=== PATIENT | female | born 1985 | race African-American/Black ===

== ENCOUNTER 2020-02-26 04:41 | Inpatient (IN) | payer OTHER ==
[2020-02-25 11:20] VITALS: BMI 28.1
[2020-02-26] MEDS ORDERED: VASOPRESSIN 20 UNITS/ML VIAL IV ONE (06:42)
[2020-02-26] MEDS ORDERED: BUPIVACAINE LIPOSOME/PF (EXPAREL) 266 MG/20 ML VIAL ONE (07:14)
[2020-02-26] MEDS ORDERED: MIDAZOLAM HCL 2 MG/2 ML SINGLE DOSE VIAL ONE ×3 (07:27→07:28)
[2020-02-26] MEDS ORDERED: ROCURONIUM BROMIDE 50 MG/5 ML SYRINGE ONE ×2 (07:27→08:31)
[2020-02-26] MEDS ORDERED: PROPOFOL 20 ML ONE ×4 (07:27→09:35)
[2020-02-26] MEDS ORDERED: EPHEDRINE SULFATE/0.9% NACL/PF 50 MG/10 ML SYRINGE NR ONE (07:28)
[2020-02-26] MEDS ORDERED: SUCCINYLCHOLINE CHLORIDE 200 MG/10 ML SYRINGE ONE (07:28)
[2020-02-26] MEDS ORDERED: fentaNYL CITRATE 250 MCG/5 ML VIAL ONE (07:28)
--- NOTE | 2020-02-26 08:01 | HP ---
History & Physical Update - History History: No Change - Physical Physical: No Change - Assessment Assessment: No Change - Plan Plan: No Change (No change in HP)
[2020-02-26] MEDS ORDERED: ceFAZolin SODIUM 1 GM VIAL IVPB ONE (08:15)
[2020-02-26] MEDS ORDERED: ONDANSETRON 4 MG/2 ML VIAL IVPUSH PRN ×3 (08:32→12:12)
[2020-02-26] MEDS ORDERED: LACTATED RINGERS SOLUTION 1,000 ML IV SCH (08:45)
[2020-02-26] MEDS ORDERED: HYDROmorphone HCl 2 MG/ML VIAL ONE (08:54)
[2020-02-26] MEDS ORDERED: DEXAMETHASONE SOD PHOSPHATE 4 MG/1 ML VIAL ONE (09:00)
[2020-02-26] MEDS ORDERED: LIDOCAINE HCL 2% JELLY (5 ML/TUBE) ONE (09:00)
[2020-02-26] MEDS ORDERED: ceFAZolin SODIUM 1 GM VIAL ONE (09:00)
[2020-02-26] MEDS ORDERED: GLYCOPYRROLATE 0.2 MG/1 ML VIAL ONE (09:00)
[2020-02-26] MEDS ORDERED: NEOSTIGMINE METHYLSULFATE 0.5 MG/ML - 10 ML MDV ONE (09:00)
[2020-02-26] MEDS ORDERED: LIDOCAINE HCL/PF 2% SDV 5ML VIAL ONE (09:00)
[2020-02-26] MEDS ORDERED: LABETALOL HCL 5 MG/1 ML (100MG/20 ML VIAL) ONE (09:08)
[2020-02-26] MEDS ORDERED: hydrALAZINE HCL 20 MG/ML VIAL ONE (10:39)
[2020-02-26] MEDS ORDERED: hydrALAZINE HCL 20 MG/ML VIAL IVPUSH ONE (10:40)
--- NOTE | 2020-02-26 11:29 | OP ---
Operative Note - Note: Operative Date: 02/26/20 Pre-Operative Diagnosis: Leiomyomatous Uterus. Abdominal Pain Operation: Abdominal myomectomy. Enterolysis Post-Operative Diagnosis: Same as Pre-op Surgeon: Ashlee Arenas Counter Stacker: Nils Montoya Anesthesia: General Specimens Removed: 12 cm myoma. 2 x 3 cm. 1 x 4 cm. 1x 5 cm Estimated Blood Loss (mls): 200 Operative Report Dictated: Yes
[2020-02-26] MEDS ORDERED: DOCUSATE SODIUM 100 MG CAPSULE (FP) PO PRN (11:33)
[2020-02-26] MEDS ORDERED: BISACODYL 5 MG TABLET.DR (FP) PO PRN (11:33)
[2020-02-26] MEDS ORDERED: ACETAMINOPHEN 325 MG TABLET (FP) PO PRN (11:33)
[2020-02-26] MEDS ORDERED: ELECTROLYTE-148 SOLN 1,000 ML IV SCH (11:45)
[2020-02-26] MEDS: LACTATED RINGERS SOLUTION 1,000 ML IV SCH ×2 (13:00→21:15)
[2020-02-26] MEDS ORDERED: CEFAZOLIN 2 GM in DEXTROSE 5%-WATER - 100 ML IVPB ONE (16:00)
[2020-02-26] MEDS: IBUPROFEN 800 MG/8 ML IJ IVPB PRN (16:19)
[2020-02-26] MEDS: CEFAZOLIN 1 GM/D5W 1 GM/50 ML BAG IVPB SCH (18:42)
[2020-02-26 20:35] LABS: HEMATOCRIT 34.2 % (32.4-45.2); HEMOGLOBIN 11.5 GM/dL (10.7-15.3); MCH 32.3 pg (25.7-33.7); MCHC 33.7 g/dl (32.0-36.0); MEAN CELL VOLUME 95.8 fl (80-96); MEAN PLT VOLUME 9.4 fl (7.5-11.1); PLATELET COUNT 211 K/MM3 (134-434); RBC 3.57 M/mm3 (3.60-5.2); RDW 13.7 % (11.6-15.6); WHITE BLOOD COUNT 8.8 K/mm3 (4.0-10.0)
[2020-02-26 20:52] LABS: BLOOD UREA NITROGEN 10.1 mg/dL (7-18); CALCIUM 8.4 mg/dL (8.5-10.1); CREATININE 0.8 mg/dL (0.55-1.3)
[2020-02-26] MEDS: SIMETHICONE 80 MG TAB.CHEW (FP) PO PRN (21:12)
[2020-02-27] MEDS: IBUPROFEN 800 MG/8 ML IJ IVPB PRN (00:45)
[2020-02-27] MEDS: CEFAZOLIN 1 GM/D5W 1 GM/50 ML BAG IVPB SCH ×2 (03:00→10:36)
[2020-02-27] MEDS: SIMETHICONE 80 MG TAB.CHEW (FP) PO PRN ×2 (06:04→18:38)
[2020-02-27] MEDS ORDERED: oxyCODONE HCL 5 MG TABLET PO ONE (06:30)
[2020-02-27] MEDS ORDERED: oxyCODONE HCL 5 MG TABLET PO PRN (08:00)
[2020-02-27 09:09] LABS: HEMOGLOBIN 10.4 GM/dL (10.7-15.3); MCH 32.1 pg (25.7-33.7); MCHC 33.7 g/dl (32.0-36.0); MEAN CELL VOLUME 95.1 fl (80-96); MEAN PLT VOLUME 9.6 fl (7.5-11.1); PLATELET COUNT 179 K/MM3 (134-434); RBC 3.25 M/mm3 (3.60-5.2); WHITE BLOOD COUNT 6.6 K/mm3 (4.0-10.0)
--- NOTE | 2020-02-27 09:12 | PN ---
Progress Note (short form) - Note Progress Note: Surgery: Pt seen this am, Just medicated with oral oxycodone and resting. No nausea or emesis. Having some scant vaginal bleeding. Vital Signs Period Temp Pulse Resp BP Sys/Mitchell Pulse Ox Last 24 Hr 98.1 F-100.0 F 56-110 16-20 112-185/62-126 95-100 Sal:1150 celar/yellow urine GEN: A&0x3, NAD CV;RR, mild tachycardia Lungs: CTA b/l ABD: soft, non-distended, inc tenderness. Dressing c/d/i. LE: no calf tenderness or swelling noted b/l CBC, BMP 02/27/20 07:09 02/27/20 07:09 A/P: 34 yo female s/p Abdominal myomectomy, POD#1 continue clears OOB and ambulate DVT ppx wit lovenox SQ and SCDs incentive spirometer D/w Dr Arenas
[2020-02-27 09:25] LABS: BLOOD UREA NITROGEN 8.2 mg/dL (7-18); CALCIUM 8.2 mg/dL (8.5-10.1); CREATININE 0.7 mg/dL (0.55-1.3); POTASSIUM 3.5 mmol/L (3.5-5.1)
[2020-02-27] MEDS ORDERED: ENOXAPARIN NA (PORCINE) 40 MG/0.4 ML DISP.SYRIN SQ SCH (10:00)
[2020-02-27] MEDS: ACETAMINOPHEN 325 MG TABLET (FP) PO SCH ×4 (10:30→22:18)
[2020-02-27] MEDS: ENOXAPARIN NA (PORCINE) 40 MG/0.4 ML DISP.SYRIN SQ SCH (10:31)
[2020-02-27] MEDS: oxyCODONE HCL 5 MG TABLET PO PRN ×2 (14:34→18:37)
[2020-02-28] MEDS: oxyCODONE HCL 5 MG TABLET PO PRN (05:26)
--- NOTE | 2020-02-28 05:44 | DS ---
Physical Exam-CERTIFIED CODING SPECIALIST Vital Signs: Vital Signs Temperature 98 F 02/27/20 22:00 Pulse Rate 75 02/27/20 22:00 Respiratory Rate 18 02/27/20 22:00 Blood Pressure 125/83 02/27/20 22:00 O2 Sat by Pulse Oximetry (%) 98 02/27/20 22:00 Constitutional: Yes: Well Nourished, No Distress Gastrointestinal: Yes: WNL, Soft Extremities: Yes: WNL Edema: No Labs: CBC, BMP 02/27/20 07:09 02/27/20 07:09 Discharge Summary Problems reviewed: Yes Reason For Visit: FIBROIDS Leiomyomatous uterus Procedures: Principal: Abdominal myomectomy Hospital Course: Unremarkable Condition: Stable - Instructions Diet, Activity, Other Instructions: Dr. Ashlee Arenas Printed Circuit Layout Taper discharge instructions Physical activity Resume your normal everyday activity as tolerated no heavy lifting or exercise until seen by your surgeon. You may walk unlimited brain of and climb stairs. You may resume driving the car when you feel safe and comfortable behind the wheel. No sexual activity as instructed by Dr. Arenas. Wound care If you have a bandage, leave it on, and keep dry for 48-72 hours. After that time discard the outer bandage. If they are tapes on the skin under the out of bandage leave them in place. They will peel off in the next 7 to 10 days. Do Not Peel them off. You may shower the day after surgery. If there are tapes present on the skin, you may shower over them. Diet There are no dietary restrictions. Eat healthy, high-fiber foods. Drink 6 to 8 glasses of liquid each day. This will assist in keeping your bowels are regular. Pain management You may take Tylenol or acetaminophen or Ibuprofen (for example, Motrin, Advil etc.) from my pain prescription medication is ordered should be taken as prescribed for moderate to severe pain. Call Dr. Arenas for any of the following: Severe pain not relieved by medication Fever of 101 or higher Excessive bleeding or drainage on dressing Inability to urinate ISTOP: [phone] Call the office at [phone] for an appointment in seven days. Disposition: HOME - Home Medications Comprehensive Discharge Medication List: Ambulatory Orders NK [No Known Home Medication] 02/25/20
[2020-02-28] MEDS: ENOXAPARIN NA (PORCINE) 40 MG/0.4 ML DISP.SYRIN SQ SCH (11:14)
[2020-02-28] MEDS: IBUPROFEN 800 MG/8 ML IJ IVPB PRN (14:41)
[2020-02-28 15:39] VITALS: BP 121/91; PULSE 100; TEMP 99.6
[2020-02-28 16:45] LABS: BASO % 0.7 % (0-2.0); EOS % 2.4 % (0-4.5); HEMATOCRIT 35.1 % (32.4-45.2); HEMOGLOBIN 11.7 GM/dL (10.7-15.3); LYMPH % 19.5 % (8-40); MCHC 33.2 g/dl (32.0-36.0); MEAN CELL VOLUME 96.3 fl (80-96); MEAN PLT VOLUME 10.1 fl (7.5-11.1); MONO % 6.5 % (3.8-10.2); NEUT % 70.9 % (42.8-82.8); PLATELET COUNT 207 K/MM3 (134-434); RBC 3.65 M/mm3 (3.60-5.2); RDW 13.8 % (11.6-15.6); WHITE BLOOD COUNT 6.1 K/mm3 (4.0-10.0)
--- NOTE | 2020-03-01 16:54 | PATH ---
Surgical Pathology Report Patient Name: NAOMI MCKNIGHT Med. Rec. #: [id number] /Age/Gender: 1985 (Age: 34) / F Account: [id number] Location: [address] [place] [address]/[facility] Taken: 02/26/2020 Received: 02/26/2020 Reported: 03/01/2020 Physicians: Ashlee Arenas M.D. Specimen(s) Received FIBROIDS Clinical History Fibroids Final Diagnosis FIBROIDS, ABDOMINAL MYOMECTOMY: 989 G, LEIOMYOMA(TA). PORTION OF FIBROMUSCULAR TISSUE WITH FOCAL MILD HEMORRHAGE. SEE COMMENT. Comment: Suggest clinical correlation. Electronically Signed Lyndsey Qureshi M.D. Gross Description Received in formalin labeled "fibroids" is a 989 g aggregate of multiple, romo, rubbery nodules consistent with fibroids and fibromuscular tissue ranging in size from 3 -10 cm in greatest dimension. Sectioning of the fibroids, reveal a romo, rubbery parenchyma with whorled architecture. No areas of hemorrhage or necrosis are identified. A separate fragment of fibromuscular tissue measuring 9 x 8 x 1.5 cm, displays a focal area of hemorrhage. Edger Machine Helper sections are submitted in 7 cassettes as follows: 1-4- largest fibroids; 5-6- smaller fibroids; 7- fibromuscular tissue with hemorrhage. MLSZ/02/27/2020 sanml/02/27/2020
--- NOTE | 2020-03-03 14:24 | OP ---
DATE OF OPERATION: 02/26/2020 PREOPERATIVE DIAGNOSES: 1. Leiomyomatous uterus. 2. Abdominal pain. OPERATION: Abdominal myomectomy and enterolysis. POSTOPERATIVE DIAGNOSIS: Leiomyomatous uterus. SURGEON: Dario Arenas MD HONEY BLENDER: Nils Montoya MD ANESTHESIA: General. FINDINGS: A 12-cm myoma removed, two 3 cm fibroids, one 4 cm fibroid, and one 5 cm fibroid removed. ESTIMATED BLOOD LOSS: About 200 mL. PROCEDURE: The patient was taken to the operating room, placed in the supine position, and prepped and draped in the usual sterile fashion. A Pfannenstiel skin incision was made with a scalpel. Cautery was then used to go through the layers of the abdominal wall to the level of the fascia. The fascia was cut in midline and cautery was then used to open the fascia in a smiling fashion. Taryn was then used to bluntly and sharply dissect the rectus muscle off the fascia. Muscle was split in the midline and the peritoneal cavity was then entered. The rectus muscle was then transversely cut with the cautery. A large 17-cm uterus was exteriorized. Of note in the fundal area was a 12-cm myoma with some small myomas throughout the uterine cavity. Tourniquet was placed in the clear space of the broad ligament. Some adhesions were noted, bowel adhesions to the uterus and sidewall and Dr. Montoya was able to perform enterolysis and remove the adhesions off the uterus and the sidewall. A circumferential incision was made after the Pitressin was infiltrated and the tourniquet placed. A large 12-cm myoma was removed. Using blunt and sharp technique the 12 cm myoma was enucleated out. Smaller fibroids were also noted. Two 3 cm myomas were removed through other incisions anteriorly as well as one 4 cm and one 5 cm myoma removed using blunt and sharp technique. After Pitressin was infiltrated incisions were made and those myomas were removed. The uterus was then closed in layers using 0 Vicryl as well as V-Loc suture on the serosa and hemostasis was achieved in all of the incisions After hemostasis was achieved the tourniquet was removed, coagulation of the holes were then done. The uterus was then interiorized. The abdominal cavity was cleaned with clean lap pads. The peritoneum was then closed using 0- Vicryl in a continuous stitch. The muscles were approximated using a purse string stitch using 0- Vicryl suture. The fascia was then closed using 0 Vicryl suture. Subcutaneous tissue was closed using a 2-0 Vicryl and the skin was then closed using 3-0 Vicryl in a subcuticular fashion. Wound was washed and dressed. The patient tolerated the procedure well. Prior to internalizing the uterus Interceed was placed and sewn onto the incisions to prevent adhesions. The wound was washed and dressed. The patient tolerated the procedure and was taken to the recovery room in stable condition. DARIO ARENAS M.D. [id number]
== END 2020-02-28 19:22 | disposition home or self-care (01) | DRG 743 ==
LOC: J2C 04:41 → EDSTATUS 08:30 → J6S 12:40
PROVIDERS: ADMIT Obstetrics & Gynecology; ATTEND Obstetrics & Gynecology
PROC: 0UB90ZZ Excision of Uterus, Open Approach (ICD-10-PCS; principal; 2020-02-26 07:30)
DX: D25.9 Leiomyoma of uterus, unspecified (principal)
CPT/HCPCS: 36415; 80048; 84703; 85025; 85027; 86850; 86900; 86901; 86922; 88305-TC; 94010; 94760

== ENCOUNTER 2020-03-03 12:45 | Emergency (ER) | payer OTHER ==
[2020-03-03 12:59] VITALS: BMI 28.3
--- OUTSIDE RECORDS SUMMARY | 2020-03-03 13:01 | XMS ---
:1985 Author Organization [facility] Support Name Relationship Address Phone ERNESTO HUERTA PARTNER [address] [facility] [phone] [place] [address] [facility] Unavailable [address] [phone] [place] [address] LAKIA CHIN MOTHER [address] [facility] [phone] [place] [address] LAKIA CHIN Mother [address] [facility] [place] [address] Re-disclosure Warning The records that you are about to access may contain information from federally- assisted alcohol or drug abuse programs. If such information is present, then the following federally mandated warning applies: This information has been disclosed to you from records protected by federal confidentiality rules (42 CFR part 2). The federal rules prohibit you from making any further disclosure of this information unless further disclosure is expressly permitted by the written consent of the person to whom it pertains or as otherwise permitted by 42 CFR part 2. A general authorization for the release of medical or other information is NOT sufficient for this purpose. The Federal rules restrict any use of the information to criminally investigate or prosecute any alcohol or drug abuse patient.The records that you are about to access may contain highly sensitive health information, the redisclosure of which is protected by Article 27-F of the [facility] Public Health law. If you continue you may haveaccess to information: Regarding HIV / AIDS; Provided by facilities licensed or operated by the [facility] Office of Mental Health; or Provided by the [facility] Office for People With Developmental Disabilities. If such information is present, then the following [facility] mandated warning applies: This information has been disclosed to you from confidential records which are protected by state law. State law prohibits you from making any further disclosure of this information without the specific written consent of the person to whom it pertains, or as otherwise permitted by law. Any unauthorized further disclosure in violation of state law may result in a fine or shelter sentence or both. A general authorization for the release of medical or other information is NOT sufficient authorization for further disclosure. Insurance Providers Payer name Policy type Policy ID Covered Covered democrat's Policy P florin / Coverage democrat ID relationship to [employer] ormation type wilson LOCAL [id number] - [id number] [facility] Results ID Date Data Source [id number] 02/22/2020 11:50:00 AM EDT [facility] Name Value Range Interpretation Description Data Sup porting Code Source(s) Document(s ) SARS [facility] coronavirus 2 RNA This lab was ordered by [facility] and reported by [facility]. Procedure
[2020-03-03] MEDS ORDERED: LACTATED RINGERS SOLUTION 1,000 ML IV STA (13:13)
[2020-03-03 13:45] LABS: BASO % 1.2 % (0-2.0); EOS % 3.1 % (0-4.5); HEMATOCRIT 35.1 % (32.4-45.2); HEMOGLOBIN 11.6 GM/dL (10.7-15.3); LYMPH % 25.9 % (8-40); MCH 31.3 pg (25.7-33.7); MEAN CELL VOLUME 94.9 fl (80-96); MEAN PLT VOLUME 8.6 fl (7.5-11.1); MONO % 6.4 % (3.8-10.2); NEUT % 63.4 % (42.8-82.8); PLATELET COUNT 295 K/MM3 (134-434); RBC 3.71 M/mm3 (3.60-5.2); RDW 13.8 % (11.6-15.6); WHITE BLOOD COUNT 5.2 K/mm3 (4.0-10.0)
[2020-03-03 13:56] LABS: INR 1.16 (0.83-1.09)
[2020-03-03 13:59] LABS: ACTIVATED PTT 30.7 SECONDS (25.2-36.5)
[2020-03-03 14:11] LABS: POTASSIUM 4.3 mmol/L (3.5-5.1)
[2020-03-03 14:13] LABS: ALBUMIN 3.3 g/dl (3.4-5.0); BLOOD UREA NITROGEN 22.2 mg/dL (7-18); CALCIUM 9.3 mg/dL (8.5-10.1); MAGNESIUM 2.3 mg/dL (1.8-2.4)
[2020-03-03 14:16] LABS: CREATININE 0.8 mg/dL (0.55-1.3)
[2020-03-03 14:18] LABS: BILIRUBIN,TOTAL 0.6 mg/dL (0.2-1); TOT PROT 7.2 g/dl (6.4-8.2)
--- NOTE | 2020-03-03 14:24 | PDOC ---
History of Present Illness - General Chief Complaint: Pain Stated Complaint: PAIN Time Seen by Provider: 03/03/20 14:03 - History of Present Illness Initial Comments: 03/03/20 14:36 34 yo female s/p myomectomy in Feb 25 by presenting with lower abdominal pain and fever for the last 6 days. Pt explains she has been having lower abdominal pain since her surgery and it has not changed. Pt explains since her surgery she does not know if she had fevers the first two days but believes to have fevers since discharge with highest reading be 101 yesterday. Pt explains also having a cough and chest pain worse with cough and deep inspiration. Pt also has associated dysuria and urinary frequency. Pt has not made bowel movement since surgery but has been passing gas since 02/27. Pt denies hematuria and blood in vaginal canal. PMH: denies Meds:oxycodone and ibuprofen PSH: myomectomy (2x) Allergies: denies Social: denies smoking drugs or alcohol OBGYN: Dr. Arenas PCP: Dr. Ayon ([facility]) Past History - Medical History Allergies/Adverse Reactions: Allergies Allergy/AdvReac Type Severity Reaction Status Date / Time No Known Allergies Allergy Verified 03/03/20 12:54 Home Medications: Ambulatory Orders Ibuprofen [Motrin -] 600 mg PO QID #28 tablet 02/28/20 Oxycodone HCl/Acetaminophen [Percocet 5-325 mg Tablet] 1 - 2 tab PO Q6H #20 tab MDD 6 02/28/20 Anemia: No Asthma: No Cancer: No Cardiac Disorders: No CVA: No COPD: No CHF: No Dementia: No Diabetes: No GI Disorders: No Disorders: No HTN: Yes (NO MEDS-ELEVATED WITH ANXIETY) Hypercholesterolemia: No Liver Disease: No Seizures: No Thyroid Disease: No Other medical history: fibroids - Reproductive History Is Patient Now?: No - Psycho-Social/Smoking History Smoking History: Never smoked Have you smoked in the past 12 months: No Information on smoking cessation initiated: No - Substance Abuse Hx (Audit-C & DAST Scrn) How often the patient has a drink containing alcohol: Never Score: In Men: 4 or > Positive; In Women: 3 or > Positive: 0 Screen Result (Pos requires Nsg. Audit-10AR): Negative In the last yr the pt used illegal drug/Rx for NonMed reason: No Score: Yes response is considered Positive: 0 Screen Result (Positive result requires Nsg. DAST-10): Negative Review of Systems - Review of Systems Comments:: 03/03/20 14:44 GENERAL/CONSTITUTIONAL: Fevers and chills HEAD, EYES, EARS, NOSE AND THROAT: No change in vision. No ear pain or discharge. No sore throat. CARDIOVASCULAR: chest pain. no sob RESPIRATORY: Cough. NO wheezing, or hemoptysis. GASTROINTESTINAL: Nausea and constipation. NO vomiting, diarrhea GENITOURINARY: Dysuria and urinary frequency MUSCULOSKELETAL: No joint or muscle swelling or pain.Lower back pain SKIN: No rash NEUROLOGIC: No headache, vertigo, loss of consciousness, or change in strength/sensation. ENDOCRINE: No increased thirst. No abnormal weight change ALLERGIC/IMMUNOLOGIC: No hives or skin allergy. 03/03/20 14:45 *Physical Exam - Vital Signs Last Vital Signs Temp Pulse Resp BP Pulse Ox 98.5 F 91 H 17 140/91 100 03/03/20 12:49 03/03/20 12:49 03/03/20 12:49 03/03/20 12:49 03/03/20 12:49 - Physical Exam 03/03/20 14:47 GENERAL: Awake, alert, and fully oriented, in moderate distress HEAD: No signs of trauma, normocephalic, atraumatic EYES: EOMI, sclera anicteric, conjunctiva clear ENT: Auricles normal inspection, hearing grossly normal, nares patent, oropharynx clear without exudates. Moist mucosa NECK: Normal ROM, supple, no lymphadenopathy, JVD, or masses LUNGS: No distress, speaks full sentences, clear to auscultation bilaterally HEART: Regular rate and rhythm, normal S1 and S2, no murmurs, rubs or gallops, peripheral pulses normal and equal bilaterally. ABDOMEN: Normoactive bowel sounds in all four quadrants. Healed midline surgical scar with no erythema or puss. Tenderness to palpation in LLQ and RLQ EXTREMITIES : Normal inspection, Normal range of motion, no edema. No clubbing or cyanosis. NEUROLOGICAL: Cranial nerves II through XII grossly intact. Normal speech SKIN: Warm, Dry, normal turgor, no rashes or lesions noted ED Treatment Course - LABORATORY CBC & Chemistry Diagram: 03/03/20 13:30 03/03/20 13:30 - ADDITIONAL ORDERS Additional order review: Laboratory Results 03/03/20 03/03/20 13:30 13:30 PT with INR 14.00 H INR 1.16 H PTT (Actin FS) 30.7 Sodium 139 Potassium 4.3 Chloride 105 Carbon Dioxide 27 Anion Gap 7 L BUN 22.2 H Creatinine 0.8 Est GFR (CKD-EPI)AfAm 109.93 Est GFR (CKD-EPI)NonAf 94.85 Random Glucose 77 Calcium 9.3 Magnesium 2.3 Total Bilirubin 0.6 AST 42 H ALT 60 Alkaline Phosphatase 52 Total Protein 7.2 Albumin 3.3 L Lipase 57 L 03/03/20 13:30 RBC 3.71 MCV 94.9 MCHC 33.0 RDW 13.8 MPV 8.6 D Neutrophils % 63.4 Lymphocytes % 25.9 D Monocytes % 6.4 Eosinophils % 3.1 Basophils % 1.2 - Medications Given in the ED: ED Medications Discontinued Medications Generic Name Dose Route Start Last Admin Trade Name Freq PRN Reason Stop Dose Admin Lactated Ringer's 1,000 mls @ 1,000 mls/hr 03/03/20 13:13 03/03/20 13:30 Lactated Ringers Solution IV 03/03/20 14:12 1,000 mls/hr ONCE STA Administration Medical Decision Making - Medical Decision Making 03/03/20 14:49 34 yo s/p myomectomy presents to ED for fever and lower abd pain. Pt also has dysuria, urinary frequency, and nonproductive cough. Assesment: s/p surgery infection: PNA, atelectasis, GI abscess, ileus, uterine infection, UTI PLAN: - cxr - cbc, cmp, coags, type and screen, UA, Urine culture - CT scan of abd and pelvis with IV contrast 03/03/20 16:11 - Labs are unremarkable - awaiting CT scan results. 03/03/20 18:15 CT scan of abd/pelvis: mild thickening of the rectus abdominous muscles at the level of the pelvis which could be on a postsurgical basis. Several small pockets of aire are also noted within the rectus sheats bilaterally. Mild soft tissue strandisg a well as trace fluid accumulation. is noted adjacent to the uterine fundus ventrally. A small amount of free intraperitooneal fluid is overall size demonstrating multiple low attenuation intramural and subserosal lesions probably representing leiomyomas. Dr. Arenas was consulted with CT scan results. Dr. Arenas was told about ER course and she advised pt can go home and follow up with her in the morning. 03/03/20 18:18 03/03/20 18:42 Pt still no fever. Pt will be discharged with GI follow up. OBGYN follow up. Pt CXR was negative. Discharge - Discharge Information Problems reviewed: Yes Clinical Impression/Diagnosis: Abdominal pain Qualifiers: Abdominal location: right lower quadrant Qualified Code(s): R10.31 - Right lower quadrant pain Condition: Good Disposition: HOME - Follow up/Referral Referrals: Ashlee Arenas MD [Staff Physician] - Vinay Davey MD [Staff Physician] - - Patient Discharge Instructions Patient Printed Discharge Instructions: Myomectomy -- Open Surgery Additional Instructions: You came to the ED for abdominal pain and fever. This is most likely due to your most recent surgery. At the ER we did labs, imaging, and took your vitals. At the ER you did not have a fever, but we gave you fluids. We also did imaging which were negative for any acute pathologies. We also did labs which were within normal limits. The imaging did show a .5cm right hepatic lobe hypodense focus which should be followed up with a milk and cream grader within the next 3 months. For your fever and pain please follow up with your OBGYN tomorrow. For your fever and pain please continue taking your oxycodone as needed. IF you run out of your oxycodone please take 325-650mg tylenol every 6 hours when needed. Please come back: - worsening abdominal pain - worsening fever - unable to pass bowel movements after 14 days. For any emergent symptoms please call for medical help right away. - Post Discharge Activity
[2020-03-03 15:08] LABS: URINE APPEARANCE CLEAR; URINE BILIRUBIN NEGATIVE (NEGATIVE); URINE COLOR YELLOW; URINE GLUCOSE (UA) NEGATIVE (NEGATIVE); URINE KETONE NEGATIVE (NEGATIVE); URINE LEUK ESTERASE NEGATIVE (NEGATIVE); URINE NITRITE NEGATIVE (NEGATIVE); URINE PROTEIN NEGATIVE (NEGATIVE)
--- NOTE | 2020-03-03 16:00 | PDOC ---
Documentation entered by Imer Simpson SCRIBE, acting as scribe for Camilo Ortiz MD. Camilo Ortiz MD: This documentation has been prepared by the Calvin grant Xhesika, SCRIBE, under my direction and personally reviewed by me in its entirety. I confirm that the documentation accurately reflects all work, treatment, procedures, and medical decision making performed by me. Attending Attestation - Resident Resident Name: CalliclariTorito - ED Attending Attestation I have performed the following: I have examined & evaluated the patient, The case was reviewed & discussed with the resident, I agree w/resident's findings & plan, Exceptions are as noted - HPI HPI: 03/03/20 13:14 34y/o F with a PMH of s/p Abdominal myomectomy (02/26/[address] Arenas) who presents to the ED for fever (Tmax 101 yesterday) and lower abdominal pain since her surgery. Pt state she has not had a BM since surgery. The patient denies chest pain, shortness of breath, headache and dizziness. Denies cough, nausea, vomiting, diarrhea and constipation. Denies dysuria, frequency, urgency and hematuria. Allergies: NKDA - Physicial Exam PE: 03/03/20 15:57 EXAMINATION CONSTITUTIONAL: Well-appearing; well-nourished; in no apparent distress EYES: PERRL; EOM intact ENMT: External appears normal; normal oropharynx CARD: Normal S1, S2; no murmurs, rubs, or gallops RESP: Normal chest excursion with respiration; breath sounds clear and equal bilaterally; no wheezes, rhonchi, or rales ABD: Soft, non-distended; + rlq/suprapubic/llq ttp; no g/r; tender; no palpable organomegaly, no palpable hernias; no cva ttp; = vertical infraumbilcal incision-well appearing. EXT: Normal ROM in all four extremities; non-tender to palpation; distal pulses intact - Medical Decision Making 03/03/20 15:58 34-year-old female with history of leiomyomas, status post open myomectomy days previously presents with lower abdominal pain and fever (T-max of 101) for the past 24 to 36 hours. In the ER, patient is nontoxic-appearing, afebrile. Vital signs are noted. Abdominal exam reveals diffuse lower abdominal tenderness to palpation without guarding or rebound. Will obtain chest x-ray to rule out pneumonia. Will obtain CBC/CMP/blood culture/urine culture. Will obtain CT of abdomen pelvis with IV contrast to evaluate for intra-abdominal collection. Will consult RADIO MECHANIC APPRENTICE. Will reassess. Discharge - Discharge Information Problems reviewed: Yes Clinical Impression/Diagnosis: Abdominal pain Qualifiers: Abdominal location: right lower quadrant Qualified Code(s): R10.31 - Right lower quadrant pain - Follow up/Referral - Patient Discharge Instructions - Post Discharge Activity
[2020-03-03 18:38] VITALS: BP 130/79; PULSE 74; TEMP 97.8
[2020-03-04 09:02] LABS: PHOSPHOROUS 5.1 mg/dL (2.5-4.9)
== END 2020-03-03 19:30 | disposition home or self-care (01) ==
LOC: JER 12:45
PROC: 3E0337Z Introduction of Electrolytic and Water Balance Substance into Peripheral Vein, Percutaneous Approach (ICD-10-PCS; principal; 2020-03-03)
DX: R10.31 Right lower quadrant pain (principal)
CPT/HCPCS: 36415; 71045-TC-FY; 74177-TC; 80053; 81003; 83605; 83690; 83735; 84100; 84703; 85025; 85610; 85730; 86850; 86900; 86901; 87086; 99284-25; Q9967

== ENCOUNTER → 2022-12-08 | Day surgery (SDC) | payer OTHER | END | disposition home or self-care (01) | LOC: JRADIR 09:38 | PROVIDERS: ATTEND Internal Medicine Endocrinology, Diabetes & Metabolism | PROC: 0G9H3ZX Drainage of Right Thyroid Gland Lobe, Percutaneous Approach, Diagnostic (ICD-10-PCS; principal; 2022-12-08) | DX: E04.1 Nontoxic single thyroid nodule (principal) | CPT/HCPCS: 10005; 76942; 88173; 88305-TC ==

== ENCOUNTER → 2024-07-21 | Day surgery (SDC) | payer OTHER | END | disposition home or self-care (01) | LOC: JRADIR 09:56 | PROVIDERS: ATTEND Internal Medicine Endocrinology, Diabetes & Metabolism | PROC: 0GBH3ZX Excision of Right Thyroid Gland Lobe, Percutaneous Approach, Diagnostic (ICD-10-PCS; principal; 2024-07-21) | DX: E04.1 Nontoxic single thyroid nodule (principal) | CPT/HCPCS: 10005; 76942; 88173; 88305-TC ==